=== PATIENT | female | born 1995 | race Caucasian/White ===

== ENCOUNTER 2017-03-06 17:56 | Emergency (ER) | payer OTHER ==
[~2017-03-06 17:56] MED LIST: ACETAMINOPHEN PO; ALBUTEROL17 GM INH; AMOXICILLIN; AMOXICILLIN PO; AMOXICILLIN875 MG PO; AUGMENTIN875 MG PO; BACTRIM DS TABL1 TA1 PO; BENZONATATE PO; BIRTH CONTROL PILL; CIPRO; CIPRO PO; FLEXERIL PO; FLEXERIL10 M1 PO; IBUPROFEN400 MG PO; IBUPROFEN800 MG PO; IMPLANON IL; LORTAB 5/500 TA1 TA1; MACROBID100 MG PO; MOTRIN600 MG PO; NO MEDICATIONS; NUVARING V1 VAG.RING VAG; PHENERGAN25 M1 PO; PHENERGAN25 MG PO; PREDNISONE; PREDNISONE PO; PRENATAL MULTI1 EACH PO; PRENATAL1 TA1; STERAPRED5 MG/DOSE1 PO; TAMIFLU75 M1 PO; TYLENOL #3; VOLTAREN75 MG PO; ZOFRAN; ZOFRAN ODT4 MG PO; ZOFRAN ODT4 MG/UDTAB PO; ZOFRANODT PO
== END 2017-03-06 20:34 | disposition left against medical advice (07) ==
LOC: SED 17:56
DX: Z53.21 Procedure and treatment not carried out due to patient leaving prior to being seen by health care provider (principal)